=== PATIENT | female | born 1975 | race African-American/Black ===

== ENCOUNTER 2017-01-28 17:10 | Outpatient (CLI) | payer OTHER ==
[2017-01-28 18:22] LABS: Mean Platelet Volume 8.6 fL (7.4-10.4); White Blood Cell (WBC) Count 4.9 thou/uL (4.8-10.8)
[2017-01-28 18:34] LABS: Anion Gap 10 mmol/L (10-20); BUN (Urea Nitrogen) 7 mg/dL (7.0-18.7); Calc. Creatinine Clearance 0 mL/min (70-130); Calcium 9.5 mg/dL (7.8-10.44); Carbon Dioxide 30 mmol/L (22-29); Chloride 101 mmol/L (98-107); Estimated GFR-MDRD Greater than 90
--- NOTE | 2017-01-29 15:49 | EKG ---
Test Reason : Blood Pressure : / mmHG Vent. Rate : 068 BPM Atrial Rate : 068 BPM P-R Int : 182 ms QRS Dur : 112 ms QT Int : 404 ms P-R-T Axes : 060 082 001 degrees QTc Int : 429 ms Normal sinus rhythm Normal ECG When compared with ECG of 21-NOV-2015 17:20, Nonspecific T wave abnormality no longer evident in Lateral leads Confirmed by SARINA MARQUIS ([id number]) on 01/29/2017 3:48:49 PM Referred By: YANIQUE Confirmed By:SARINA MARQUIS
== END 2017-01-28 17:11 | disposition home or self-care (01) ==
LOC: LABBT 17:10
PROVIDERS: ATTEND Obstetrics & Gynecology
DX: Z01.818 Encounter for other preprocedural examination (principal); N92.0 Excessive and frequent menstruation with regular cycle
CPT/HCPCS: 80048; 84703; 85027; 86850; 86900; 86901; 93005; 93010

== ENCOUNTER 2017-02-04 05:34 | Inpatient (IN) | payer OTHER ==
[2017-01-28 17:32] VITALS: BMI 40.8
--- NOTE | 2017-02-02 15:48 | HP ---
DATE OF ADMISSION: 02/04/2017 REASON FOR ADMISSION: Menorrhagia, dysmenorrhea, status post endometrial ablation. HISTORY OF PRESENT ILLNESS: Ms. Ayala is a 41-year-old 4, para 4, status post endometrial ab lation in 2005. She has had persistent dysfunctional uterine bleeding, menorrhagia and dysmenorrhea. She desires definitive surgical management. OB AND [employer]ER HISTORY: x4, no history of dysplasia, no history of STDs. PAST MEDICAL HISTORY: Hypertension and hyperlipidemia. PAST SURGICAL HISTORY: Neck cyst removal and endometrial ablation. ALLERGIES: SULFA. MEDICATIONS: Baby aspirins discontinued 7 days ago, lisinopril, vitamins and simvastatin. SOCIAL HISTORY: Denies tobacco, alcohol, IV drug abuse. FAMILY HISTORY: Noncontributory. REVIEW OF SYSTEMS: Noncontributory. PHYSICAL EXAMINATION: GENERAL: Black female in no acute distress. VITAL SIGNS: 5 feet 7, 270, BMI of 42, blood pressure 130/70. HEENT: Within normal limits. LUNGS: Clear to auscultation bilaterally. HEART: Regular rhythm. BREASTS: No masses bilaterally. ABDOMEN: Soft, nontender, no rebound or guarding. PELVIC: Vulva without lesions. Vagina without discharge. Cervix parous, uterus anteverted, 6 week size. Adnexa, no masses bilaterally. EXTREMITIES: Without clubbing, cyanosis or edema. LABORATORY AND X-RAY FINDINGS: Ultrasound reveals a uterus measuring at 10 x 6 x 5 cm with a 2 cm an terior fibroid and an 8 mm endometrial thickness, and normal right and left adnexa without free fluid . IMPRESSION: Persistent menorrhagia and dysmenorrhea, status post endometrial ablation. PLAN: Discussed with patient options. We will proceed with TLH with bilateral salpingectomy with da Maria Del Rosario robot with appropriate antibiotic and DVT prophylaxis at [facility] on 02/04/2017. P atient understands risks and benefits of procedure and gives verbal and written informed consent.
[2017-02-04] MEDS ORDERED: CEFAZOLIN/Water 2 GM/20 ML SYRINGE ONE (06:13)
[2017-02-04] MEDS ORDERED: Midazolam HCl 2 mg/2 ml Vial ONE (06:18)
[2017-02-04] MEDS ORDERED: Fentanyl 100 MCG/2 ML VIAL ONE ×2 (06:18→10:02)
[2017-02-04] MEDS ORDERED: HYDROmorphone 0.5 MG/0.5 ML SYRINGE ONE (06:19)
[2017-02-04] MEDS ORDERED: Bupivacaine/Epinephrine 0.25% 30 ML VIAL ONE (06:51)
[2017-02-04] MEDS ORDERED: Albuterol Sulfate HFA (OR ONLY) ONE (07:52)
[2017-02-04] MEDS ORDERED: Promethazine HCl 25 MG/ML VIAL IM PRN ×2 (09:19→11:08)
[2017-02-04] MEDS ORDERED: HYDROmorphone 2 MG/ML VIAL SLOW IVP PRN (09:19)
[2017-02-04] MEDS ORDERED: Ondansetron HCl/PF 4 MG/2 ML Vial IVP PRN ×2 (09:19→11:08)
[2017-02-04] MEDS ORDERED: Promethazine HCl 25 MG/ML VIAL SLOW IVP PRN (09:19)
[2017-02-04] MEDS: Sodium Chloride 0.9% 1,000 ML IV SCH ×2 (11:00→18:16)
[2017-02-04] MEDS ORDERED: Morphine 4 MG/ML Carpuject SLOW IVP PRN (11:08)
[2017-02-04] MEDS ORDERED: HYDROcodone/Acetaminophen 10/325 mg Tablet PO PRN ×2 (11:08)
[2017-02-04] MEDS ORDERED: diphenhydrAMINE 25 MG CAP PO PRN (11:08)
[2017-02-04] MEDS ORDERED: Zolpidem Tartrate 5 MG TAB PO PRN (11:08)
[2017-02-04] MEDS ORDERED: Simethicone Chewable 80 MG TAB PO PRN (11:08)
[2017-02-04] MEDS ORDERED: Ibuprofen 200 MG TAB PO PRN (11:34)
[2017-02-04] MEDS ORDERED: Morphine PF 1 MG/ML SYR IVP PRN ×2 (11:39→11:45)
[2017-02-04] MEDS ORDERED: MORPHINE 10 MG/ML SYRINGE SLOW IVP PRN (11:42)
[2017-02-04] MEDS ORDERED: Ketorolac Tromethamine 30 MG/ML VIAL IVP SCH (12:00)
[2017-02-04] MEDS: Acetaminophen 1,000 MG in Premix Bag 1 BAG IVPB SCH ×3 (12:23→23:33)
--- NOTE | 2017-02-04 12:43 | OP ---
DATE OF OPERATION: 02/04/2017 PREOPERATIVE DIAGNOSES: Dysmenorrhea, menorrhagia, status post endometrial ablation. POSTOPERATIVE DIAGNOSES: Dysmenorrhea, menorrhagia, status post endometrial ablation. PROCEDURE: Laparoscopic hysterectomy with bilateral salpingectomy with da Maria Del Rosario robot assist. SURGEON: Antoine Rojas M.D. CLEANING AND MAINTENANCE WORKER: Thomas Soto D.O. ESTIMATED BLOOD LOSS: 50 mL. MEDICATIONS: Two grams Ancef preincision. DVT PROPHYLAXIS: SCDs. ANESTHESIA: General endotracheal. DRAINS: Haas to gravity, clear urine. OPERATIVE FINDINGS: 1. A large multiparous cervix. 2. Approximately 8 week sized uterus. 3. Bilateral fallopian tubes, status post a Falope ring placement. 4. Hemostasis with clear urine. 5. Counts correct at the end of the procedure. DISPOSITION: To the recovery room in good condition. DESCRIPTION OF OPERATIVE PROCEDURE: After obtaining proper informed consent, the patient was taken t o the operating room where general endotracheal anesthesia was achieved without difficulty. The Fole y catheter was placed with 400 mL of clear urine noted. Side arm speculum in the vagina, identified the cervix which was large and multiparous. The largest vaginal chair maker for the cervix was 4 cm. Cervix was approximately 4.3 cm in greatest diameter. The uterus sounded to 10 cm and an 8 mm obtur ator was placed using the GIOVANNI manipulator. Tenaculum and speculum removed. Locomotive Operator changed his gl oves and turned his attention to the abdominal portion of the procedure. Five mL of Marcaine injecte d at the superior aspect at the umbilicus and a 12 mm skin incision made. Veress needle placed in th e abdominal cavity. Confirmation of entry into the peritoneal cavity via a saline drop test. Insuff lation was carried out with carbon dioxide max pressure 15. Once this pressure was obtained a 12 mm noncutting trocar was introduced. Confirmation of entry into the peritoneal cavity without trauma to underlying viscera was noted. The patient was placed in steep Trendelenburg position and right and left lateral da Maria Del Rosario robot obturators were placed under direct visualization as well as an 11 mm ass istant port in the right upper quadrant. The da Maria Del Rosario robot was docked using monopolar scissors in t he right hand and bipolar forceps in the left. Pelvic and abdominal survey was taken. The vesicoute rine peritoneum was noted to be adhesed up to the dome of the fundus of the uterus, probably from the patient's previous laparoscopic tubal. This was taken down with ease. The fallopian tube was ident ified on the patient's left, the mesosalpinx coagulated and transected and this tube removed. Uteroo varian ligament was coagulated and transected to the broad and the round down to the level of the int ernal cervical os. Vesicouterine peritoneum was incised sharply, and the dissected off of lower uter ine segment, cervix, and upper vagina all the way over from the left to the right side. Skeletonizat ion of the uterine vessels on the left was carried out and these were coagulated and transected as we ll. Attention was turned to the patient's right where the identical procedure was carried out. Once the uterine vessels were skeletonized and coagulated further dissection of the bladder off the cervi x and upper vagina was carried out. A challenging part of the case was the patient's very large cerv ix as well as the inability to obtain a manipulator that completely covered the cervix. However, it was able to be delineated on a quadrant by quadrant basis by rotating the GIOVANNI in the appropriate man ner. Layer by layer dissection through the vaginal, cervical interface was carried out until the man ipulator was reached at 12 o'clock and this was extended from 12 to 3 and the incision was then exten ded then from 3 to 6 and from 9 to 6 completely amputating the specimen and pulling it into the vagin a maintaining pneumoperitoneum. Suction irrigation was carried out and good hemostasis was achieved along the entire aspect of the cuff. V-Loc running suture was then run from right to left and then b ack to the right to close the cuff with the bladder backfilled to assure that it was well away from t he operative field. Good clear urine was noted as well. Once this was performed, good hemostasis wa s noted. Camila was applied across all surgical surfaces. Instruments were removed. The da Maria Del Rosario w as undocked. Trocars removed after desufflating the abdomen of carbon dioxide. The fascia reapproxi mated at the supraumbilical site using a UR-5 needle and an 0 Vicryl suture and skin reapproximated x 4 using 4-0 Monocryl and Dermabond. The specimen was removed from the vagina, vagina inspected and n oted to be dry. Clear urine noted and the patient awakened, extubated, and taken to recovery room in good condition.
[2017-02-04] MEDS ORDERED: Ondansetron HCl/PF 4 MG/2 ML Vial ONE (14:49)
[2017-02-04] MEDS ORDERED: Dexamethasone 20 MG/5 ML VIAL ONE (14:49)
[2017-02-04] MEDS ORDERED: Lidocaine 1% PF 5 ML VIAL ONE (14:49)
[2017-02-04] MEDS ORDERED: ePHEDrine/0.9% NaCl/PF SYRINGE 50 mg/10 ml ONE (14:49)
[2017-02-04] MEDS ORDERED: Glycopyrrolate 0.2 MG/ML 5 ML SYRINGE ONE (14:49)
[2017-02-04] MEDS ORDERED: Propofol 200 MG/20 ML VIAL ONE (14:49)
[2017-02-04] MEDS ORDERED: Ketorolac Tromethamine 30 MG/ML VIAL ONE (14:49)
[2017-02-04] MEDS: Ketorolac Tromethamine 30 MG/ML VIAL IVP SCH ×2 (15:01→21:21)
[2017-02-04] MEDS ORDERED: Atorvastatin Calcium 10 MG TAB PO SCH (21:00)
[2017-02-05] MEDS: Sodium Chloride 0.9% 1,000 ML IV SCH ×2 (04:08→08:34)
[2017-02-05] MEDS: Ketorolac Tromethamine 30 MG/ML VIAL IVP SCH ×2 (04:08→08:33)
[2017-02-05 04:13] VITALS: TEMP 98.6
[2017-02-05 05:51] LABS: Hematocrit 35.3 % (36.0-47.0); Mean Platelet Volume 8.9 fL (7.4-10.4); Red Blood Cell (RBC) Count 4.12 mill/uL (4.20-5.40); White Blood Cell (WBC) Count 8.2 thou/uL (4.8-10.8)
[2017-02-05] MEDS: Acetaminophen 1,000 MG in Premix Bag 1 BAG IVPB SCH (06:08)
[2017-02-05 08:19] VITALS: BP 139/73
[2017-02-05] MEDS ORDERED: Aspirin 81 mg Enteric Coated Tablet PO SCH (09:00)
[2017-02-05] MEDS ORDERED: Lisinopril/Hydrochlorothiazide 10 mg/12.5 mg Tablet PO SCH (09:00)
[2017-02-05] MEDS ORDERED: Prenatal Vitamin 1 TAB PO SCH (09:00)
[2017-02-05] MEDS ORDERED: Loratadine 10 MG TAB PO SCH (09:00)
--- NOTE | 2017-02-05 11:48 | DIS ---
DATE OF ADMISSION: 02/04/2017 DATE OF DISCHARGE: 02/05/2017 IN-HOSPITAL PROCEDURES: Total laparoscopic hysterectomy with bilateral salpingectomy. HISTORY OF PRESENT ILLNESS: Ms. Ayala is a 41-year-old with a history of menorrhagia, dysmenorrhea, status post endometrial ablation and underwent a TLH with 50 mL EBL on the a.m. of 02/04. She had an unremarkable postoperative course. Postoperative hematocrit is 35% and urine output is greater than 2500 mL. Postoperatively, the patient was voiding with ease. PHYSICAL EXAMINATION: VITAL SIGNS: Temperature 98.6, respirations 18, blood pressure 125/75 and pulse 85. HEENT: Within normal limits. LUNGS: Auscultation bilaterally. HEART: Regular rhythm. BREASTS: No masses bilaterally. ABDOMEN: Soft and nontender. No rebound or guarding. Appropriate appearing incisions without bleed ing or erythema. Perineum is dry. EXTREMITIES: Without clubbing, cyanosis or edema. IMPRESSION: Doing well, status post total laparoscopic hysterectomy, bilateral salpingectomy with da Maria Del Rosario robot postoperative day #1. PLAN: Discharge home. Follow up at [facility] in 6 weeks. Discharge medications added to the patient's preadmission will be Planada, which will be called in from my office and patient will be seen for followup in 4-6 weeks.
== END 2017-02-05 10:46 | disposition home or self-care (01) | DRG 743 ==
LOC: SDC 05:34 → 3SE 09:22 → EDSTATUS 17:00
PROVIDERS: ADMIT Obstetrics & Gynecology; ATTEND Obstetrics & Gynecology
PROC: 0UT94ZZ Resection of Uterus, Percutaneous Endoscopic Approach (ICD-10-PCS; principal; 2017-02-04)
PROC: 0UTC4ZZ Resection of Cervix, Percutaneous Endoscopic Approach (ICD-10-PCS; 2017-02-04)
PROC: 0UT74ZZ Resection of Bilateral Fallopian Tubes, Percutaneous Endoscopic Approach (ICD-10-PCS; 2017-02-04)
PROC: 8E0W4CZ Robotic Assisted Procedure of Trunk Region, Percutaneous Endoscopic Approach (ICD-10-PCS; 2017-02-04)
DX: N93.8 Other specified abnormal uterine and vaginal bleeding (principal); I10 Essential (primary) hypertension; D25.9 Leiomyoma of uterus, unspecified; N94.6 Dysmenorrhea, unspecified; N92.0 Excessive and frequent menstruation with regular cycle; E78.5 Hyperlipidemia, unspecified
CPT/HCPCS: 36415; 85027; 88307; A4216; J0131; J1100; J1170; J1885; J2001; J2250; J2405; J2704; J3010

== ENCOUNTER 2017-08-15 06:14 | Emergency (ER) | payer OTHER ==
[2017-08-15] MEDS ORDERED: Ketorolac Tromethamine 30 MG/ML VIAL ONE (06:53)
[2017-08-15] MEDS ORDERED: Diazepam 5 MG TAB ONE (07:29)
[2017-08-15 08:44] LABS: Bilirubin Negative (Negative); Blood, Urine Negative (Negative); Clarity CLEAR (Clear); Glucose, Urine (Dipstick) Negative (Negative); Leukocyte Negative (Negative); Nitrite Negative (Negative); Protein, Urine (Dipstick) Negative (Neg-Trace); Specific Gravity, Urine 1.018 (1.002-1.036); Urobilinogen 0.2 mg/dL (0.2-1.0)
[2017-08-15 08:47] LABS: Pregnancy Test - Urine (BHCG) Negative (Negative); Pregu Control Background? CLEAR/WHITE (CLR/WHITE); Pregu Control Bar Appear? YES (CONTROL BAR); Specific Gravity 1.018 (1.002-1.036)
== END 2017-08-15 08:57 | disposition home or self-care (01) ==
LOC: ERS 06:14
DX: S39.012A Strain of muscle, fascia and tendon of lower back, initial encounter (principal); I10 Essential (primary) hypertension; E78.00 Pure hypercholesterolemia, unspecified; F41.9 Anxiety disorder, unspecified; X50.1XXA Overexertion from prolonged static or awkward postures, initial encounter
CPT/HCPCS: 81003; 81025; 96372; J1885

== ENCOUNTER 2018-02-18 13:22 | Outpatient (CLI) | payer OTHER | END 2018-02-18 13:23 | disposition home or self-care (01) | LOC: BICMAMMO 13:22 | PROVIDERS: ATTEND Family Medicine | DX: Z12.31 Encounter for screening mammogram for malignant neoplasm of breast (principal); Z80.3 Family history of malignant neoplasm of breast | CPT/HCPCS: 77063; 77067 ==

== ENCOUNTER 2018-11-18 16:49 | Emergency (ER) | payer OTHER ==
--- NOTE | 2018-11-18 18:24 | RAD ---
Exam: Chest one view HISTORY:Chest pain Comparison: 12/27/2014 FINDINGS: Cardiac silhouette: Normal Aorta: Unremarkable Pulmonary vessels: Normal Costophrenic angles: Clear LUNGS: No masses or consolidation. Pneumothorax: None Osseous abnormalities: None IMPRESSION: No acute cardiopulmonary process.
[2018-11-18 18:35] LABS: #Eosinphils 0.3 thou/uL (0.0-0.7); #Lymphocytes 2.4 thou/uL (1.20-3.40); #Monocytes 0.6 thou/uL (0.11-0.59); #Neutrophils 3.1 thou/uL (1.40-6.50); %Basophils 0.5 % (0.0-1.0); %Eosinophils 4.8 % (0.0-10.0); %Lymphocytes 37.1 % (21.0-51.0); %Monocytes 9.2 % (0.0-10.0); %Neutrophils 48.4 % (42.0-75.0); Hemoglobin 12.6 g/dL (12.0-16.0); Mean Corpuscular HGB CONC 34.9 g/dL (32.0-36.0); Mean Corpuscular Hemoglobin 29.2 pg (27.0-31.0); Mean Corpuscular Volume 83.7 fL (78.0-98.0); Mean Platelet Volume 9.7 fL (7.4-10.4); Platelet Count 168 thou/uL (130-400); Red Blood Cell (RBC) Count 4.32 mill/uL (4.20-5.40); White Blood Cell (WBC) Count 6.5 thou/uL (4.8-10.8)
[2018-11-18 18:57] LABS: ALT (SGPT) 14 U/L (8-55); AST (SGOT) 14 U/L (5-34); Albumin 4.1 g/dL (3.5-5.0); Alkaline Phosphatase 90 U/L (40-110); Anion Gap 11 mmol/L (10-20); BUN (Urea Nitrogen) 12 mg/dL (7.0-18.7); Bilirubin, Total 0.2 mg/dL (0.2-1.2); Calc. Creatinine Clearance 0 mL/min (70-130); Calcium 9.4 mg/dL (7.8-10.44); Carbon Dioxide 28 mmol/L (22-29); Chloride 102 mmol/L (98-107); Estimated GFR-MDRD 68; Glucose 119 mg/dL (70-105); Potassium 3.7 mmol/L (3.5-5.1); Protein, Total 7.1 g/dL (6.0-8.3); Sodium 137 mmol/L (136-145)
[2018-11-18] MEDS ORDERED: Albuterol Sulfate 2.5 mg/3 ml Neb ONE (20:29)
== END 2018-11-18 21:33 | disposition home or self-care (01) ==
LOC: ERS 16:49
DX: R06.02 Shortness of breath (principal); I10 Essential (primary) hypertension; E78.00 Pure hypercholesterolemia, unspecified; F41.9 Anxiety disorder, unspecified; Z79.899 Other long term (current) drug therapy; Z79.82 Long term (current) use of aspirin
CPT/HCPCS: 36415; 71045; 80053; 82550; 83880; 84484; 85025; 93005; 94640; J7611

== ENCOUNTER 2019-08-29 14:36 | Outpatient (CLI) | payer OTHER ==
--- NOTE | 2019-08-29 15:34 | MMO ---
Bilateral MAMMO Bilat Screen [facility]. CLINICAL HISTORY: Patient is 44 years old and is seen for screening. The patient has the following family history of breast cancer: maternal aunt, malignant (generic) and half brother, malignant (generic). The patient has no personal history of cancer. VIEWS: The views performed were: bilateral craniocaudal with tomosynthesis and bilateral mediolateral oblique with tomosynthesis. FILMS COMPARED: The present examination has been compared to prior imaging studies performed at [facility] on 10/29/2016 and 02/18/2018. This study has been interpreted with the assistance of computer-aided detection. MAMMOGRAM FINDINGS: There are scattered fibroglandular densities. There are no suspicious masses, suspicious calcifications, or new areas of architectural distortion. IMPRESSION: THERE IS NO MAMMOGRAPHIC EVIDENCE OF MALIGNANCY. A ROUTINE FOLLOW-UP MAMMOGRAM IN 1 YEAR IS RECOMMENDED. THE RESULTS OF THIS EXAM WERE SENT TO THE PATIENT. ACR BI-RADS Category 1 - Negative MAMMOGRAPHY NOTE: 1. A negative mammogram report should not delay a biopsy if a dominant of clinically suspicious mass is present. 2. Approximately 10% to 15% of breast cancers are not detected by mammography. 3. Adenosis and dense breasts may obscure an underlying neoplasm. Reported by: GRACE WASHINGTON MD Electonically Signed: [id number]
== END 2019-08-29 14:37 | disposition home or self-care (01) ==
LOC: BICMAMMO 14:36
PROVIDERS: ATTEND Family Medicine
DX: Z12.31 Encounter for screening mammogram for malignant neoplasm of breast (principal); Z80.3 Family history of malignant neoplasm of breast
CPT/HCPCS: 77063; 77067

== ENCOUNTER 2021-01-07 17:00 | Outpatient (CLI) | payer BC | END 2021-01-07 17:01 | disposition home or self-care (01) | LOC: SLEEPLAB 17:00 | PROVIDERS: ATTEND Family Medicine | DX: G47.33 Obstructive sleep apnea (adult) (pediatric) (principal); R53.83 Other fatigue; R09.89 Other specified symptoms and signs involving the circulatory and respiratory systems; R06.83 Snoring; F41.9 Anxiety disorder, unspecified; K21.9 Gastro-esophageal reflux disease without esophagitis; G47.00 Insomnia, unspecified; I10 Essential (primary) hypertension; E66.9 Obesity, unspecified; Z68.41 Body mass index [BMI] 40.0-44.9, adult | CPT/HCPCS: 95806 ==

== ENCOUNTER 2021-12-21 23:27 | Emergency (ER) | payer BC ==
[2021-12-21] MEDS ORDERED: Aspirin 325 MG TAB ONE (23:47)
[2021-12-21] MEDS ORDERED: Nitroglycerin 2% Ointment 1 INCH/1 GM Packet ONE (23:47)
[2021-12-22 00:02] LABS: #Basophils 0.1 thou/uL (0.0-0.2); #Eosinphils 0.3 thou/uL (0.0-0.7); #Lymphocytes 2.4 thou/uL (1.20-3.40); #Monocytes 0.5 thou/uL (0.11-0.59); #Neutrophils 2.2 thou/uL (1.40-6.50); %Basophils 1.6 % (0.0-1.0); %Eosinophils 5.7 % (0.0-10.0); %Lymphocytes 43.5 % (21.0-51.0); %Monocytes 9.9 % (0.0-10.0); %Neutrophils 39.3 % (42.0-75.0); Hemoglobin 12.4 g/dL (12.0-16.0); Mean Corpuscular HGB CONC 31.9 g/dL (32.0-36.0); Mean Corpuscular Volume 87.8 fl (78.0-98.0); Mean Platelet Volume 9.2 fL (7.4-10.4); Platelet Count 191 thou/uL (130-400); RBC Distribution Width 12.1 % (11.5-14.5); Red Blood Cell (RBC) Count 4.43 mill/uL (4.20-5.40); White Blood Cell (WBC) Count 5.5 thou/uL (4.8-10.8)
[2021-12-22 00:16] LABS: ALT (SGPT) 15 U/L (8-55); AST (SGOT) 16 U/L (5-34); Albumin 3.9 g/dL (3.5-5.0); Alkaline Phosphatase 76 U/L (40-110); Anion Gap 10 mmol/L (10-20); BUN (Urea Nitrogen) 13 mg/dL (7.0-18.7); Bilirubin, Total Less than 0.2 mg/dL (0.2-1.2); Calc. Creatinine Clearance 0 mL/min (70-130); Calcium 9.6 mg/dL (7.8-10.44); Carbon Dioxide 29 mmol/L (22-29); Chloride 104 mmol/L (98-107); Estimated GFR 93; Globulin 3.6 g/dL (2.4-3.5); Glucose 109 mg/dL (70-105); Potassium 3.7 mmol/L (3.5-5.1); Protein, Total 7.5 g/dL (6.0-8.3); Sodium 139 mmol/L (136-145)
[2021-12-22] MEDS ORDERED: Iopamidol-370 76% 500 ML 1 ML ONE (10:40)
== END 2021-12-22 01:43 | disposition home or self-care (01) ==
LOC: ERS 23:27
DX: R07.89 Other chest pain (principal); I10 Essential (primary) hypertension; E78.00 Pure hypercholesterolemia, unspecified; Z79.899 Other long term (current) drug therapy
CPT/HCPCS: 71045; 71275; 74174; 80053; 83880; 84484; 85025; 93005; Q9967

== ENCOUNTER 2023-11-27 08:57 | Emergency (ER) | payer BC ==
[2023-11-27 09:46] LABS: #Basophils 0.03 10x3/uL (0.0-0.2); %Basophils 0.6 % (0.0-1.0); %Eosinophils 5.4 % (0.0-10.0); %Lymphocytes 35.6 % (21.0-51.0); %Monocytes 9.5 % (0.0-10.0); %Neutrophils 48.7 % (42.0-75.0); Hemoglobin 12.5 g/dL (12.0-16.0); Mean Corpuscular HGB CONC 32.1 g/dL (32.0-36.0); Mean Corpuscular Hemoglobin 27.6 pg (27.0-31.0); Mean Corpuscular Volume 86.1 fL (78.0-98.0); Mean Platelet Volume 10.7 fL (7.4-10.4); Platelet Count 217 10x3/uL (130-400); RBC Distribution Width 13.3 % (11.5-14.5); Red Blood Cell (RBC) Count 4.53 mill/uL (4.20-5.40)
[2023-11-27 09:59] LABS: BHCG - Serum Negative (NEGATIVE); Pregs Control Background? CLEAR/WHITE (CLR/WHITE); Pregs Control Bar Appear? YES (CONTROL BAR)
[2023-11-27 10:10] LABS: ALT (SGPT) 17 U/L (8-55); AST (SGOT) 17 U/L (5-34); Albumin 3.7 g/dL (3.5-5.0); Alkaline Phosphatase 77 U/L (40-110); Anion Gap 8 mmol/L (10-20); BUN (Urea Nitrogen) 14 mg/dL (7.0-18.7); Bilirubin, Total 0.5 mg/dL (0.2-1.2); Calc. Creatinine Clearance 0 mL/min (70-130); Calcium 9.4 mg/dL (7.8-10.44); Carbon Dioxide 30 mmol/L (22-29); Chloride 102 mmol/L (98-107); Estimated GFR 83; Globulin 3.5 g/dL (2.4-3.5); Glucose 98 mg/dL (70-105); Potassium 3.9 mmol/L (3.5-5.1); Protein, Total 7.2 g/dL (6.0-8.3); Sodium 136 mmol/L (136-145)
[2023-11-27 10:21] LABS: Troponin I Less than 0.010 ng/mL (< 0.028)
[2023-11-27 12:39] LABS: Bilirubin Negative (Negative); Blood, Urine Negative (Negative); CAUTI Indications for Culture Pelvic or flank pain; Clarity Turbid (Clear); Glucose, Urine (Dipstick) Normal (Negative); Ketone, Urine Negative (Negative); Leukocyte Negative Leu/uL (Negative); Nitrite 2+ (Negative); Protein, Urine (Dipstick) Negative (Neg-Trace); RBC/HPF 0-3 HPF (0-3); Squamous Epithelial 0-3 HPF (0-3); Urobilinogen Normal mg/dL (Less than 2)
[2023-11-27 12:41] LABS: Bacteria/HPF 1+ HPF (None Seen); Urine Culture Reflex No No
== END 2023-11-27 14:01 | disposition home or self-care (01) ==
LOC: ERS 08:57
DX: R07.89 Other chest pain (principal); N39.0 Urinary tract infection, site not specified; I10 Essential (primary) hypertension
CPT/HCPCS: 36415; 71045; 80053; 81001; 84484; 84703; 85025; 85379; 93005